=== PATIENT | female | born 1965 | race Caucasian/White ===

== ENCOUNTER 2016-09-02 16:16 | Emergency (ER) ==
[2016-09-02 16:28] LABS: BASOPHILS # (AUTO) 0.1 K/uL (0-0.2); BASOPHILS % (AUTO) 0.6 % (0.0-3.0); EOSINOPHILS # (AUTO) 0.5 K/ul (0.0-0.7); EOSINOPHILS % (AUTO) 3.2 % (0.0-7.0); IMMATURE GRANULOCYTE % (AUTO) 0.5 % (0.0-5.0); LYMPHOCYTES # (AUTO) 2.7 K/uL (0.60-3.4); LYMPHOCYTES % (AUTO) 17.7 (10.0-50.0); MEAN CORPUSCULAR HEMOGLOBIN 29.1 pg (27.0-31.0); MEAN CORPUSCULAR HGB CONC 34.3 (31.8-35.4); MEAN CORPUSCULAR VOLUME 84.7 fl (81.0-99.0); MONOCYTES # (AUTO) 0.7 K/uL (0.4-2.0); MONOCYTES % (AUTO) 4.6 (0-10); NEUTROPHILS % (AUTO) 73.4; PLATELET COUNT 271 10^3/uL (140-440); RED BLOOD COUNT 4.13 10^6/ul (4.20-5.40); WHITE BLOOD COUNT 14.98 K/ul (4.6-10.2)
[2016-09-02 16:43] VITALS: BP 80/60; TEMP 98.4; BMI 30.9
--- NOTE | 2016-09-02 16:50 | DI ---
EXAM: Single AP view of the chest HISTORY: Chest pain. COMPARISON: Chest x-ray 11/18/[address] chest 10/18/2014 FINDINGS: Cardiomediastinal silhouette is unremarkable. There is a persistent right calcified granu ibeth measuring 1.5 cm in diameter. There is no pneumothorax or definitive effusion. There is no co nsolidation or mass. The osseous structures are unremarkable. IMPRESSION: No acute cardiopulmonary process. Right lower lobe pulmonary nodule is seen on prior CT 2014 and is considered benign.
[2016-09-02 17:17] LABS: ALANINE AMINOTRANSFERASE 38 U/L (12-78); ALBUMIN 3.6 g/dL (3.4-5.0); ALBUMIN/GLOBULIN RATIO 1.33; ALKALINE PHOSPHATASE 91 U/L (42-98); ANION GAP 13.2; ASPARTATE AMINO TRANSFERASE 93 U/L (15-37); BILIRUBIN,TOTAL 0.32 mg/dL (0.00-1.20); BLOOD UREA NITROGEN 13 mg/dL (7-18); BUN/CREATININE RATIO 11.81; CALCIUM 8.9 mg/dL (8.2-10.2); CARBON DIOXIDE 21 mmol/L (21-32); CHLORIDE 110 mmol/L (98-107); GLUCOSE 119 mg/dL (70-110); POTASSIUM 3.2 mmol/L (3.5-5.10); SODIUM 141 mmol/L (136-145); TOTAL PROTEIN 6.3 g/dL (6.4-8.2)
[2016-09-02 17:56] LABS: CREATINE KINASE 6310 U/L
[2016-09-02 17:57] LABS: CREATINE KINASE MB 10.5 ng/ml (0.0-3.6)
--- NOTE | 2016-09-02 18:02 | ED.PDOC ---
General ED Provider: Dr. SINCERE MCLEOD Chief Complaint: Chest Pain Stated Complaint: chest pain Time Seen by Physician: 16:16 (took 2 nitro at home ) Mode of Arrival: Ambulance Information Source: Patient Exam Limitations: No limitations Primary Care Provider: PRABHA ZENDEJAS Nursing and Triage Documentation Reviewed and Agree: Yes Cardiovascular Complaint Exam - Chest Pain Complaint/Exam Onset: Gradual Duration: onse about 2 pm Symptoms Are: Resolved Length of Chest Pain Episodes: 10 min Initial Severity: Moderate Current Severity: None Location: Reports: Midsternal Pain Radiates: Reports: None Character: Reports: Aching Aggravating: Reports: None Alleviating: Reports: None Associated Signs and Symptoms: Denies: Diaphoresis, Nausea, Vomiting, Fever, Palpitations, Cough, Hemoptysis, Back pain, Abdominal pain, Dizziness, Short of air, Calf pain, Calf swelling Related History: Reports: Similar episode Related Surgical History: Reports: None History of Healthcare-Acquired Pneumonia: Reports: No AMI/ACS Risk Factors: Reports: Smoking TAD Risk Factors: Reports: Smoking Prior Care for this Complaint: Yes (stent in 2015 x1) Recent Stress Test: No Recent Echo/LV Function: No JVD Present: No Subcutaneous Emphysema Present: No Diminshed Breath Sounds: No Reproducible Chest Wall Pain: No Bilateral Pulses Present: No If Risk Factors for AMI/ACS Consider: EKG, Cardiac Enzymes Review of Systems - Review Of Systems Constitutional: Reports: No symptoms Eyes: Reports: No symptoms Ears, Nose, Mouth, Throat: Reports: No symptoms Respiratory: Reports: No symptoms Cardiac: Reports: Chest pain GI: Reports: No symptoms : Reports: No symptoms Musculoskeletal: Reports: No symptoms Skin: Reports: No symptoms Neurological: Reports: No symptoms Endocrine: Reports: No symptoms Hematologic/Lymphatic: Reports: No symptoms All Other Systems: Reviewed and Negative Past Medical History - Past Medical History Previously Healthy: No Endocrine: Reports: None Cardiovascular: Reports: CAD Respiratory: Reports: None Hematological: Reports: None Gastrointestinal: Reports: None Genitourinary: Reports: None Neuro/Psych: Reports: None Musculoskeletal: Reports: None Cancer: Reports: None Last Menstrual Period: HYSTERECTOMY - Surgical History General Surgical History: Reports: None - Family History Family History: Reports: None - Social History Smoking Status: Current every day smoker, Light tobacco smoker Hx Substance Use: No Alcohol Screening: None Physical Exam - Physical Exam Appearance: Well-appearing, No pain distress, Well-nourished Eyes: JOSHUA, EOMI, Conjunctiva clear ENT: Ears normal, Nose normal, Oropharynx normal Respiratory: Airway patent, Breath sounds clear, Breath sounds equal, Respirations nonlabored Cardiovascular: RRR, Pulses normal, No rub, No murmur GI/: Soft, Nontender, No masses, Bowel sounds normal, No Organomegaly Musculoskeletal: Normal strength, ROM intact, No edema, No calf tenderness Skin: Warm, Dry, Normal color Neurological: Sensation intact, Motor intact, Reflexes intact, Cranial nerves intact, Alert, Oriented Psychiatric: Affect appropriate, Mood appropriate Interpretation - Radiology Interpretation Radiology Interpretation By: Radiologist Radiology Results: No acute changes Exam Interpreted: CXR - [place] [employer] Rate: Normal Rhythm: Sinus Ectopy: None - EKG Interpretation Rate: Normal Rhythm: Sinus Ectopy: None [place]: NL ST Segment: Normal EKG Comparison: No significant changes Physician Notification - Case Discussed Physician Notified: king RAMSEY (CARDIOLOGY) Time of Notification: 18:13 ([facility]) Critical Care Note - Critical Care Note Total Time (mins): 0 Course - Course Hematology/Chemistry: 09/02/16 16:20 09/02/16 16:20 Orders, Labs, Meds: Lab Review 09/02/16 16:20 WBC 14.98 H RBC 4.13 L Hgb 12.0 Hct 35.0 L MCV 84.7 MCH 29.1 MCHC 34.3 RDW Coeff of Stephanie 13.8 Plt Count 271 Immature Gran % (Auto) 0.5 Neut % (Auto) 73.4 Lymph % (Auto) 17.7 [place] % (Auto) 4.6 Eos % (Auto) 3.2 Baso % (Auto) 0.6 Immature Gran # (Auto) 0.1 Neut # 11.0 H Lymph # 2.7 [place] # 0.7 Eos # 0.5 Baso # 0.1 Sodium 141 Potassium 3.2 L Chloride 110 H Carbon Dioxide 21 Anion Gap 13.2 BUN 13 Creatinine 1.10 Estimated GFR (MDRD) 52.00 BUN/Creatinine Ratio 11.81 Glucose 119 H Calcium 8.9 Total Bilirubin 0.32 AST 93 H ALT 38 Alkaline Phosphatase 91 Total Creatine Kinase 6310 CK-MB (CK-2) 10.5 H* CK-MB (CK-2) % 0.11491 Troponin I < 0.0100 Total Protein 6.3 L Albumin 3.6 Globulin 2.7 Albumin/Globulin Ratio 1.33 Orders Category Date Time Status EKG-(ED ONLY) Stat CARDIO 09/02/16 16:17 Completed EKG-(ED ONLY) Stat CARDIO 09/02/16 18:05 Ordered ED IV/MEDIPORT/POWERPORT .ONCE EMERGENCY 09/02/16 16:17 Active CBC W/ AUTO DIFF Stat LAB 09/02/16 16:20 Completed COMPREHENSIVE METABOLIC PANEL Stat LAB 09/02/16 16:20 Completed CREATINE KINASE Stat LAB 09/02/16 16:20 Completed TROPONIN I Stat LAB 09/02/16 16:20 Completed UA [URINALYSIS C & S IF INDICATED] Stat LAB 09/02/16 18:07 Uncollected 0.9 % Sodium Chloride [Saline Flush] MEDS 09/02/16 16:16 Active 1 syr IVF PRN PRN CHEST, 1V AP ONLY Stat RADS 09/02/16 16:16 Completed Medications Generic Name Dose Route Start Last Admin Trade Name Freq PRN Reason Stop Dose Admin Sodium Chloride 1 syr 09/02/16 16:16 Saline Flush IVF PRN PRN To flush IV Vital Signs: Temp Pulse Resp BP Pulse Ox 09/02/16 16:16 98.4 F 62 20 80/60 L 100 ALYSSA Risk Score ALYSSA Risk Score: Risk Score Odds of by 30D 0 0.1 (0.1-0.2) 1 0.3 (0.2-0.3) 2 0.4 (0.3-0.5) 3 0.7 (0.6-0.9) 4 1.2 (1.0-1.5) 5 2.2 (1.9-2.6) 6 3.0 (2.5-3.6) 7 4.8 (3.8-6.1) Departure - Departure Time of Disposition: 18:06 Disposition: TSF SHORT-TRM HOSP Discharge Problem: Chest pain Condition: Good Pt referred to PMD for follow-up: Yes Allergies/Adverse Reactions: Allergies No Known Allergies Allergy (Unverified 09/02/16 16:43) Home Medications: Ambulatory Orders Aspirin [Aspirin EC] 81 mg PO DAILYWM 09/02/16 Carisoprodol [Soma] 250 mg PO TID PRN 09/02/16 Gabapentin [Neurontin] 300 mg OP BID 09/02/16 Ticagrelor [Brilinta] 60 mg PO DAILY 09/02/16 Topiramate [Topamax] 25 mg PO DIRECTED PRN 09/02/16 Venlafaxine HCl [Effexor] 75 mg PO DAILY 09/02/16 Disposition Discussed With: Patient, Family
[2016-09-02] MEDS ORDERED: SODIUM CHLORIDE 1,000 ML IV STA (18:14)
== END 2016-09-02 20:20 | disposition short-term general hospital (02) ==
LOC: ED 16:16
DX: R07.9 Chest pain, unspecified (principal); I25.10 Atherosclerotic heart disease of native coronary artery without angina pectoris; F17.210 Nicotine dependence, cigarettes, uncomplicated; Z95.5 Presence of coronary angioplasty implant and graft; Z79.899 Other long term (current) drug therapy
CPT/HCPCS: 36415; 80053; 82550; 82553; 84484; 85025; 93005; 93010; 99284

== ENCOUNTER 2016-09-02 20:19 | Outpatient (CLI) ==
[2016-09-02 16:43] VITALS: BMI 30.9
== END 2016-09-02 20:20 | disposition home or self-care (01) ==
LOC: AMBL 20:19
PROVIDERS: ATTEND Emergency Medicine
DX: R74.8 Abnormal levels of other serum enzymes (principal)